=== PATIENT | female | born 1985 | race American Indian/Alaskan Native ===

== ENCOUNTER 2017-11-07 13:15 | Emergency (ER) | payer BC ==
[2017-11-07 13:38] VITALS: RESP 20; TEMP 98.5; O2SAT 99
[2017-11-07] MEDS ORDERED: Sodium Chloride 0.9% 1,000 ML IV STA (14:08)
--- NOTE | 2017-11-07 14:13 | C.PDOC ---
History Of Present Illness 32 y/o F c PMHx asthma, HTN p/w subjective fever since yesterday. Did not take any medications prior to arrival. Reports rhinorrhea, head fullness associated with lightheadedness which worsens when leaning over. Denies photophobia, stiff neck, body aches, cough, sore throat, dyspnea, abdominal pain, nausea, vomiting , diarrhea, constipation, vaginal bleeding, dysuria, numbness, weakness. Time Seen by Provider: 11/07/17 14:00 Chief Complaint (Nursing): Fever Past Medical History Vital Signs: Last Vital Signs Temp 98.5 F 11/07/17 13:34 Pulse 79 11/07/17 13:34 Resp 20 11/07/17 13:34 BP 129/76 11/07/17 13:34 Pulse Ox 99 11/07/17 15:29 - Medical History PMH: Asthma, HTN Family History: States: No Known Family Hx - Social History Hx Alcohol Use: No Hx Substance Use: No - Immunization History Hx Tetanus Toxoid Vaccination: No Hx Influenza Vaccination: No Hx Pneumococcal Vaccination: No Review Of Systems Except As Marked, All Systems Reviewed And Found Negative. Cardiovascular: Negative for: Chest Pain Respiratory: Negative for: Shortness of Breath Physical Exam - Physical Exam Additional Physical Exam Comments: Gen: NAD Head: NC/AT Eyes: No scleral icterus ENT: MMM Neck: Supple. No nuchal rigidity. Chest: No tenderness CV: Regular rate Lungs: CTA b/l Back: No CVA tenderness Abd: Soft, NT Extremities: No swelling or tenderness SKin: No rash Neuro: Alert, no focal deficit ED Course And Treatment - Laboratory Results Result Diagrams: 11/07/17 14:41 11/07/17 14:41 O2 Sat by Pulse Oximetry: 99 Medical Decision Making Medical Decision Making: IVF, toradol, check labs. No focal deficit. Afebrile here. Normal vital signs. CXR negative for consolidation. Patient in no distress. Discharged home, f/u primary care, instructed to return to ED for worsening pain, fever, stiff neck, or feeling unwell. Disposition - Disposition Disposition: HOME/ ROUTINE Disposition Time: 15:29 Condition: STABLE Prescriptions: Famotidine [Pepcid] 1 tab PO BID #14 tab Ibuprofen [Motrin] 600 mg PO Q6 #25 tab Instructions: Headache, Adult (DC) Forms: [employer] (Emirati) - Clinical Impression Clinical Impression: Headache
[2017-11-07 14:45] LABS: BASO # 0.1 K/uL (0.0-0.2); BASO % 0.7 % (0.0-2.0); EOS # 0.2 K/uL (0.0-0.7); EOS % 3.1 % (0.0-4.0); HEMOGLOBIN 12.9 g/dL (11.0-16.0); LYMPH # 2.4 K/uL (1.0-4.3); LYMPH % 32.2 % (20.0-40.0); MEAN CELL VOLUME 84.3 fL (81.0-99.0); MEAN CORPUSCULAR HEMOGLOBIN 28.6 pg (27.0-31.0); MEAN CORPUSCULAR HGB CONC 33.9 g/dL (33.0-37.0); MEAN PLATELET VOLUME 7.9 fL (7.2-11.7); MONO # 0.5 K/uL (0.0-0.8); MONO % 6.2 % (0.0-10.0); NEUT # 4.4 K/uL (1.8-7.0); NEUT % 57.8 % (50.0-75.0); NRBC % 0.1 % (0.0-2.0); RBC 4.5 Mil/uL (3.80-5.20); RED CELL DISTRIBUTION WIDTH 13.9 % (11.5-14.5); WHITE BLOOD COUNT 7.5 K/uL (4.8-10.8)
[2017-11-07] MEDS ORDERED: Sodium Chloride 0.9% 1,000 ML ONE (14:49)
[2017-11-07 14:58] LABS: ALB/GLOB RATIO 1.1 (1.0-2.1); ALBUMIN 4.1 g/dL (3.5-5.0); ALT/SGPT 33 U/L (9-52); AST/SGOT 24 U/L (14-36); BLOOD UREA NITROGEN 16 mg/dL (7-17); CALCIUM 9.3 mg/dl (8.6-10.4); GFR AFRICAN-AMERICAN > 60; GFR NON-AFRICAN AMERICAN > 60
[2017-11-07 15:01] LABS: HCG,QUALITATIVE URINE NEGATIVE (NEGATIVE)
[2017-11-07 15:04] LABS: SQUAMOUS EPITHIAL 1 /hpf (0-5); URINE BILIRUBIN NEGATIVE (NEGATIVE); URINE BLOOD 1+ (NEGATIVE); URINE CLARITY Clear (Clear); URINE COLOR Yellow (YELLOW); URINE GLUCOSE (UA) NORMAL (Normal); URINE LEUKOCYTE ESTERASE NEG Leu/uL (Negative); URINE PROTEIN NEGATIVE (NEGATIVE); URINE UROBILINOGEN NORMAL mg/dL (0.2-1.0)
[2017-11-07 16:09] VITALS: BP 138/79; PULSE 73
--- NOTE | 2017-11-07 17:18 | RAD ---
Chest x-ray two views History: Fever. Comparison: None available. Findings: Prominent bibasilar breast shadows. Minimal patchy increased markings at the right lung base which may represent minimal atelectasis and or subtle infiltrate. Clinical correlation. Heart size within limits. Impression: Prominent bibasilar breast shadows. Minimal patchy increased markings at the right lung base which may represent minimal atelectasis and or subtle infiltrate. Clinical correlation.
== END 2017-11-07 16:16 | disposition home or self-care (01) ==
LOC: C.ER 13:15
DX: R51 Headache (principal); I10 Essential (primary) hypertension; F17.210 Nicotine dependence, cigarettes, uncomplicated
CPT/HCPCS: 71046; 80053; 81001; 84703; 85025; 87086; 96361; 96374; 99284; J1885; J7040